=== PATIENT | female | born 1970 | race Caucasian/White ===

== ENCOUNTER → 2016-09-17 17:04 | Outpatient (CLI) | payer MEDICAID ==
[2016-07-03 11:11] VITALS: BMI 27.5
[~2016-09-17 17:04] MED LIST: HYDROCODONE-APA1 TAB PO; PHENERGAN25 M1 PO; XANAX1 MG PO; ZOFRAN4 MG PO
== END | disposition home or self-care (01) ==
LOC: D.MAMMO 14:00
DX: Z12.31 Encounter for screening mammogram for malignant neoplasm of breast (principal)

== ENCOUNTER → 2016-10-01 14:49 | Outpatient (CLI) | payer MEDICAID ==
[2016-07-03 11:11] VITALS: BMI 27.5
== END | disposition home or self-care (01) ==
LOC: D.CT 14:49
DX: R10.9 Unspecified abdominal pain (principal)

== ENCOUNTER 2017-08-17 17:28 | Inpatient (IN) | payer MEDICAID ==
[~2017-08-17] VITALS: Ht 157.5 cm; Wt 68.2 kg
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
[2017-08-17 18:06] LABS: HEMATOCRIT 41.1 % (36.0-48.0); HEMOGLOBIN 13.9 g/dL (12-16); MCH 32.8 pg (26.0-34.0); MCHC 33.8 g/dL (31.0-37.0); MCV 96.9 fL (80.0-100.0); MEAN PLATELET VOLUME 11.1 fL (7.4-10.4); PLATELET COUNT 233 10x3/uL (130-400); RBC 4.24 10x6/uL (4.00-5.40); RDW 13.3 % (11.5-14.5); WBC 24.4 10x3/uL (4.8-10.8)
[2017-08-17 18:29] LABS: LYMPHOCYTES 7 % (15-50); MONOCYTES 1 % (2-11); NEUTROPHILS 79 % (40-80); PLATELET ESTIMATE NORMAL
[2017-08-17 19:03] LABS: ALBUMIN 3.5 g/dL (3.4-5.0); BILIRUBIN - TOTAL 0.72 mg/dL (0.2-1.3); CALCIUM 9.2 mg/dL (8.5-10.1); CARBON DIOXIDE 26.8 mmol/L (21.0-32.0); CREATININE - SERUM 1.1 mg/dL (0.6-1.3); POTASSIUM - SERUM 3.8 mmol/L (3.5-5.1); PROTEIN - SERUM 7.3 g/dL (6.4-8.2)
[2017-08-17 19:56] LABS: APPEARANCE CLOUDY (CLEAR); COLOR STRAW (YELLOW)
[2017-08-17 19:58] LABS: BILIRUBIN NEGATIVE (NEGATIVE); GLUCOSE NEGATIVE (NEGATIVE); KETONE NEGATIVE (NEGATIVE); NITRITE NEGATIVE (NEGATIVE); PROTEIN TRACE mg/dL (NEGATIVE); UROBILINOGEN NORMAL (NORMAL)
[2017-08-17 19:59] LABS: BACTERIA MODERATE /hpf (NONE SEEN); WHITE CELLS - URINE 25-50 /hpf (0-5)
[2017-08-17] MEDS ORDERED: ZOFRAN ODT4 MG/UDTAB PO (23:33)
[2017-08-17] MEDS ORDERED: XARELTO10 MG PO (23:35)
[2017-08-17] MEDS ORDERED: BACLOFEN10 MG PO (23:38)
[2017-08-18 00:34] VITALS: BP 115/56; Ht 157.5 cm; Wt 68.2 kg
[2017-08-18] MEDS ORDERED: BENADRYL A12.5 MG/5 PO (03:42)
[2017-08-18 04:00] VITALS: BP 115/54
[2017-08-18 08:15] VITALS: BP 122/53
[2017-08-18 12:43] VITALS: BP 104/53
[2017-08-18 16:02] VITALS: BP 104/47
[2017-08-18 20:00] VITALS: BP 112/65
[2017-08-19] MEDS ORDERED: NEURONTIN600 MG PO (02:04)
[2017-08-19] MEDS ORDERED: XARELTO10 MG PO (02:05)
[2017-08-19] MEDS ORDERED: ROBAXIN-750750 MG PO (02:14)
[2017-08-19] MEDS ORDERED: DULCOLAX10 MG/SUPP RC (02:14)
[2017-08-19] MEDS ORDERED: PROTONIX40 MG PO (02:15)
[2017-08-19] MEDS ORDERED: PAXIL CR25 MG PO (02:16)
[2017-08-19 04:00] VITALS: BP 119/66
[2017-08-19 04:37] LABS: BASOPHILS 0.1 % (0-2); IMMATURE GRANULOCYTES 0.2 % (0-5); MCH 33.1 pg (26.0-34.0); MCHC 33.3 g/dL (31.0-37.0); MEAN PLATELET VOLUME 11.9 fL (7.4-10.4); MONOCYTES 4.3 % (2-11); NEUTROPHILS 82.4 % (40-80); PLATELET COUNT 190 10x3/uL (130-400); RDW 13.4 % (11.5-14.5)
[2017-08-19 04:46] LABS: HEMATOCRIT 32.1 % (36.0-48.0); HEMOGLOBIN 10.7 g/dL (12-16); MCV 99.4 fL (80.0-100.0); RBC 3.23 10x6/uL (4.00-5.40); WBC 12.9 10x3/uL (4.8-10.8)
[2017-08-19 04:54] LABS: ALKALINE PHOSPHATASE 96 U/L (46-116); BILIRUBIN - TOTAL 0.29 mg/dL (0.2-1.3); CALCIUM 8.3 mg/dL (8.5-10.1); CARBON DIOXIDE 26.4 mmol/L (21.0-32.0); CHLORIDE - SERUM 104 mmol/L (98-107); GLUCOSE 90 mg/dL (74-106); MAGNESIUM - SERUM 2.1 mg/dL (1.8-2.4); PHOSPHOROUS 2.3 mg/dL (2.5-4.9); PROTEIN - SERUM 6.2 g/dL (6.4-8.2); SODIUM 140 mmol/L (136-145)
[2017-08-19 04:56] LABS: CALC OSMOLALITY 276 mosm/kg (275-300); CREATININE - SERUM 0.5 mg/dL (0.6-1.3); UREA NITROGEN 8 mg/dL (7-18); eGFR NON AFRICAN AMERICAN > 90 mL/min (90-120)
[2017-08-19 04:57] LABS: ALBUMIN 2.5 g/dL (3.4-5.0); ALT (SGPT) 26 U/L (10-68); POTASSIUM - SERUM 2.8 mmol/L (3.5-5.1)
[2017-08-19 08:14] VITALS: BP 132/75
[2017-08-19 13:11] VITALS: BP 135/78
[2017-08-19 17:27] VITALS: BP 126/79
[2017-08-19 20:00] VITALS: BP 114/70
[2017-08-20 04:00] VITALS: BP 132/84
[2017-08-20 04:36] LABS: BASOPHILS 0.3 % (0-2); EOSINOPHILS 3.8 % (0-7); IMMATURE GRANULOCYTES 0.3 % (0-5); LYMPHOCYTES 16.5 % (15-50); MCH 32.1 pg (26.0-34.0); MCHC 32.4 g/dL (31.0-37.0); MCV 99.1 fL (80.0-100.0); MEAN PLATELET VOLUME 11.3 fL (7.4-10.4); NEUTROPHILS 72.1 % (40-80); PLATELET COUNT 196 10x3/uL (130-400); RBC 3.43 10x6/uL (4.00-5.40)
[2017-08-20 04:48] LABS: WBC 7.6 10x3/uL (4.8-10.8)
[2017-08-20 05:22] LABS: ALBUMIN 2.4 g/dL (3.4-5.0); ALKALINE PHOSPHATASE 87 U/L (46-116); ALT (SGPT) 28 U/L (10-68); CALC OSMOLALITY 275 mosm/kg (275-300); CALCIUM 8.4 mg/dL (8.5-10.1); CARBON DIOXIDE 27.5 mmol/L (21.0-32.0); CHLORIDE - SERUM 104 mmol/L (98-107); CREATININE - SERUM 0.5 mg/dL (0.6-1.3); GLUCOSE 90 mg/dL (74-106); MAGNESIUM - SERUM 1.9 mg/dL (1.8-2.4); PHOSPHOROUS 2.8 mg/dL (2.5-4.9); SODIUM 139 mmol/L (136-145); UREA NITROGEN 6 mg/dL (7-18); eGFR NON AFRICAN AMERICAN > 90 mL/min (90-120)
[2017-08-20 05:31] LABS: POTASSIUM - SERUM 2.9 mmol/L (3.5-5.1)
[2017-08-20 09:30] VITALS: BP 141/87
[2017-08-20 12:01] VITALS: BP 125/86
[2017-08-20 16:31] VITALS: BP 133/94
[2017-08-20 20:00] VITALS: BP 119/68
[2017-08-21 04:00] VITALS: BP 112/63
[2017-08-21 05:26] LABS: BASOPHILS 0.3 % (0-2); EOSINOPHILS 3.1 % (0-7); HEMATOCRIT 32.4 % (36.0-48.0); HEMOGLOBIN 10.5 g/dL (12-16); IMMATURE GRANULOCYTES 0.3 % (0-5); LYMPHOCYTES 25.9 % (15-50); MCH 31.7 pg (26.0-34.0); MCHC 32.4 g/dL (31.0-37.0); MCV 97.9 fL (80.0-100.0); MEAN PLATELET VOLUME 11.4 fL (7.4-10.4); MONOCYTES 10.3 % (2-11); NEUTROPHILS 60.1 % (40-80); PLATELET COUNT 215 10x3/uL (130-400); RBC 3.31 10x6/uL (4.00-5.40); RDW 12.9 % (11.5-14.5); WBC 7.7 10x3/uL (4.8-10.8)
[2017-08-21 05:50] LABS: ALBUMIN 2.4 g/dL (3.4-5.0); ALKALINE PHOSPHATASE 77 U/L (46-116); ALT (SGPT) 34 U/L (10-68); BILIRUBIN - TOTAL 0.17 mg/dL (0.2-1.3); CALCIUM 8.6 mg/dL (8.5-10.1); CARBON DIOXIDE 27.7 mmol/L (21.0-32.0); CHLORIDE - SERUM 105 mmol/L (98-107); CREATININE - SERUM 0.5 mg/dL (0.6-1.3); GLUCOSE 94 mg/dL (74-106); MAGNESIUM - SERUM 1.9 mg/dL (1.8-2.4); PROTEIN - SERUM 6.1 g/dL (6.4-8.2); SODIUM 140 mmol/L (136-145); eGFR NON AFRICAN AMERICAN > 90 mL/min (90-120)
[2017-08-21 05:59] LABS: CALC OSMOLALITY 276 mosm/kg (275-300); PHOSPHOROUS 3.6 mg/dL (2.5-4.9); POTASSIUM - SERUM 3.6 mmol/L (3.5-5.1); UREA NITROGEN 8 mg/dL (7-18)
[2017-08-21 08:16] VITALS: BP 135/88
[2017-08-21 12:25] VITALS: BP 119/48
[2017-08-21 16:21] VITALS: BP 133/85
[2017-08-21 20:00] VITALS: BP 126/73
[2017-08-22] VITALS: BP 146/80
[2017-08-22 04:00] VITALS: BP 133/89
[2017-08-22 05:12] LABS: BASOPHILS 0.2 % (0-2); HEMATOCRIT 34.4 % (36.0-48.0); HEMOGLOBIN 11.3 g/dL (12-16); IMMATURE GRANULOCYTES 0.6 % (0-5); LYMPHOCYTES 25.9 % (15-50); MCH 31.8 pg (26.0-34.0); MCHC 32.8 g/dL (31.0-37.0); MCV 96.9 fL (80.0-100.0); MONOCYTES 9.5 % (2-11); NEUTROPHILS 60.8 % (40-80); RBC 3.55 10x6/uL (4.00-5.40); RDW 12.7 % (11.5-14.5); WBC 8.3 10x3/uL (4.8-10.8)
[2017-08-22 05:13] LABS: PLATELET COUNT 265 10x3/uL (130-400)
[2017-08-22 05:25] LABS: ALBUMIN 2.4 g/dL (3.4-5.0); ALKALINE PHOSPHATASE 78 U/L (46-116); ALT (SGPT) 36 U/L (10-68); CALC OSMOLALITY 282 mosm/kg (275-300); CALCIUM 8.6 mg/dL (8.5-10.1); CARBON DIOXIDE 29.6 mmol/L (21.0-32.0); CHLORIDE - SERUM 106 mmol/L (98-107); CREATININE - SERUM 0.5 mg/dL (0.6-1.3); GLUCOSE 100 mg/dL (74-106); POTASSIUM - SERUM 3.9 mmol/L (3.5-5.1); PROTEIN - SERUM 6.1 g/dL (6.4-8.2); SODIUM 143 mmol/L (136-145); UREA NITROGEN 7 mg/dL (7-18); eGFR NON AFRICAN AMERICAN > 90 mL/min (90-120)
[2017-08-22] MEDS ORDERED: BACTRIM DS TABL1 TAB PO (06:29)
[2017-08-22 08:05] VITALS: BP 129/80
== END 2017-08-22 11:56 | disposition home or self-care (01) | DRG 690 ==
LOC: D.ER 17:28 → D.MS 22:27
PROVIDERS: Emergency Medicine; Family Medicine; Physician Assistant Medical
DX: N10 Acute pyelonephritis (principal); R29.5 Transient paralysis; K59.00 Constipation, unspecified; S14.14 Brown-Sequard syndrome of cervical spinal cord; V89.2XXS Person injured in unspecified motor-vehicle accident, traffic, sequela; E87.6 Hypokalemia; B96.20 Unspecified Escherichia coli [E. coli] as the cause of diseases classified elsewhere

== ENCOUNTER → 2018-01-16 07:42 | Outpatient (CLI) | payer MEDICAID ==
[2017-08-18 00:34] VITALS: BMI 27.5
[~2018-01-16 07:42] MED LIST changes: +BACLOFEN10 MG PO; +BACTRIM DS TABL1 TAB PO; +BENADRYL A12.5 MG/5 PO; +DULCOLAX10 MG/SUPP RC; +NEURONTIN600 MG PO; +PAXIL CR25 MG PO; +PROTONIX40 MG PO; +ROBAXIN-750750 MG PO; +XARELTO10 MG PO; +ZOFRAN ODT4 MG/UDTAB PO
== END | disposition home or self-care (01) ==
LOC: D.CT 07:42
DX: R51 Headache (principal)

== ENCOUNTER 2018-06-22 12:09 | Emergency (ER) | payer MEDICAID ==
[~2018-06-22] VITALS: Ht 157.5 cm; Wt 75.0 kg
[2018-06-22 12:18] VITALS: Ht 157.5 cm; Wt 75.0 kg
[2018-06-22] MEDS ORDERED: ASPIRIN325 MG PO (12:21)
[2018-06-22 14:20] VITALS: BP 124/82
== END 2018-06-22 14:21 | disposition home or self-care (01) ==
LOC: D.ER 12:09
DX: S01.91XA Laceration without foreign body of unspecified part of head, initial encounter (principal); W18.00XA Striking against unspecified object with subsequent fall, initial encounter; Y93.89 Activity, other specified; Y92.019 Unspecified place in single-family (private) house as the place of occurrence of the external cause; M54.2 Cervicalgia; G82.20 Paraplegia, unspecified; R51 Headache; R20.2 Paresthesia of skin

== ENCOUNTER 2019-06-15 08:00 | Outpatient (CLI) | payer MEDICAID ==
[2018-06-22 12:18] VITALS: BMI 30.2
[~2019-06-15 08:00] MED LIST changes: +ASPIRIN325 MG PO
== END 2019-06-15 23:59 | disposition home or self-care (01) ==
LOC: D.MAMMO 08:00
PROVIDERS: ATTEND Family Medicine
DX: Z12.31 Encounter for screening mammogram for malignant neoplasm of breast (principal)